=== PATIENT | female | born 1985 | race Caucasian/White ===

== ENCOUNTER 2016-06-16 16:25 | Emergency (ER) | payer OTHER ==
[2016-06-16 16:33] VITALS: BP 123/71
== END 2016-06-16 19:07 | disposition home or self-care (01) ==
LOC: ED 16:25
DX: S90.811A Abrasion, right foot, initial encounter (principal); W19.XXXA Unspecified fall, initial encounter; Y93.89 Activity, other specified; Y92.89 Other specified places as the place of occurrence of the external cause; Y99.8 Other external cause status
CPT/HCPCS: 90715

== ENCOUNTER 2020-03-04 11:33 | Emergency (ER) | payer MEDICAID ==
[~2020-03-04] VITALS: Ht 154.9 cm; Wt 112.9 kg
[2020-03-04 11:40] VITALS: Ht 154.9 cm; Wt 112.9 kg
[2020-03-04 12:06] VITALS: BP 120/79
== END 2020-03-04 12:06 | disposition home or self-care (01) ==
LOC: ED 11:33
DX: O23.41 Unspecified infection of urinary tract in pregnancy, first trimester (principal); R30.0 Dysuria; Z3A.08 8 weeks gestation of pregnancy; Z90.49 Acquired absence of other specified parts of digestive tract